=== PATIENT | male | born 1990 | race Two or more races ===

== ENCOUNTER 2019-06-10 12:35 | Emergency (ER) | payer OTHER ==
--- NOTE | 2019-06-10 13:28 | ER Document Report ---
ED Medical Screen (RME) - General Chief Complaint: Hand Injury Stated Complaint: HAND PAIN Time Seen by Provider: 06/10/19 13:25 - HPI Notes: 06/10/19 13:27 Patient is a 29-year-old male with no significant past medical history presents complaining of right dorsal hand pain status post injury 2 weeks ago. Patient states that he fell on that hand when he tripped. He has been having pain and swelling since then. No fever. I have treated and performed a rapid initial assessment of this patient. A comprehensive ED assessment and evaluation of the patient, analysis of test results and completion of medical decision making process will be conducted by additional ED providers. PHYSICAL EXAMINATION: GENERAL: Well-appearing, well-nourished and in no acute distress. Rt hand: + swelling tenderness dorsal hand near 3rd metacarpal. N/V intact distal. Past Medical History - Social History Chew tobacco use (# tins/day): No Frequency of alcohol use: None Drug Abuse: None Physical Exam - Vital signs Vitals: Temp Pulse Resp BP Pulse Ox 97.9 F 117 H 18 127/78 H 97 06/10/19 12:39 06/10/19 12:39 06/10/19 12:39 06/10/19 12:39 06/10/19 12:39 Course - Vital Signs Vital signs: Temp Pulse Resp BP Pulse Ox 97.9 F 117 H 18 127/78 H 97 06/10/19 12:39 06/10/19 12:39 06/10/19 12:39 06/10/19 12:39 06/10/19 12:39
--- NOTE | 2019-06-10 14:02 | RADIOLOGY REPORT (SQ) ---
EXAM DESCRIPTION: HAND RIGHT 3 VIEWS COMPLETED DATE/TIME: 06/10/2019 1:41 pm REASON FOR STUDY: pain/swelling s/p injury dorsal hand x2wks COMPARISON: None. EXAM PARAMETERS: NUMBER OF VIEWS: Three views. TECHNIQUE: AP, lateral and oblique radiographic images acquired of the right hand. LIMITATIONS: None. FINDINGS: MINERALIZATION: Normal. BONES: There is a fracture of the 3rd metacarpal with mild dorsal angulation. JOINTS: No effusions. SOFT TISSUES: No soft tissue swelling. No foreign body. OTHER: No other significant finding. IMPRESSION: 3rd metacarpal fracture. TECHNICAL DOCUMENTATION: JOB ID: [id number] [employer]- All Rights Reserved Reading location - IP/workstation name: [email or web address]
[2019-06-10 15:20] VITALS: BP 116/74
--- NOTE | 2019-06-10 18:34 | ER Document Report ---
Entered by MEREDITH PARKER SCRIBE 06/10/19 [id number] Acting as scribe for:CAROLYNE TERRAZAS MD ED Hand/Wrist Injury - General Chief Complaint: Hand Injury Stated Complaint: HAND PAIN Time Seen by Provider: 06/10/19 13:25 Primary Care Provider: TITA HATFIELD JR, [ACTIVE PROVISIONAL STAFF] - Follow up in 3-5 days (Call the office today or Thursday to schedule an appointment.) Information source: Patient Notes: 29-year-old male who presents to the emergency department today with complaints of right hand pain since a fall that occurred on May 27. Patient states he was walking with a bag in his hand, lost his balance and fell on a balled up fist because he "did not want to drop the bag". Patient has not gotten medical care since falling. Patient is wearing a brace on his right wrist. 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 - Related Data Allergies/Adverse Reactions: No Known Allergies Allergy (Unverified 06/10/19 13:29) Past Medical History - General Information source: Patient - Social History Smoking Status: Never Smoker Cigarette use (# per day): No Chew tobacco use (# tins/day): No Smoking Education Provided: No Frequency of alcohol use: None Drug Abuse: None Lives with: Family Family History: Reviewed & Not Pertinent Patient has suicidal ideation: No Patient has homicidal ideation: No Review of Systems - Review of Systems Constitutional: No symptoms reported EENT: No symptoms reported Cardiovascular: No symptoms reported Respiratory: No symptoms reported Gastrointestinal: No symptoms reported Genitourinary: No symptoms reported Male Genitourinary: No symptoms reported Musculoskeletal: See HPI, Joint pain - right hand Skin: No symptoms reported Hematologic/Lymphatic: No symptoms reported Neurological/Psychological: No symptoms reported -: Yes All other systems reviewed and negative Physical Exam - Vital signs Vitals: Temp Pulse Resp BP Pulse Ox 97.9 F 117 H 18 127/78 H 97 06/10/19 12:39 06/10/19 12:39 06/10/19 12:39 06/10/19 12:39 06/10/19 12:39 - Notes Notes: Physical Exam: General: Alert, appears well. HEENT: Normocephalic. Atraumatic. PERRLA. Extraocular movements intact. Oropharynx clear. Neck: Supple. Respiratory: No respiratory distress. Abdominal: Normal Inspection. No distension. Extremities: Right hand is swollen and tender dorsally. Neurological: Normal cognition. AAOx4. Normal speech. Psychological: Normal affect. Normal Mood. Skin: Warm. Dry. Normal color. Course - Vital Signs Vital signs: Temp Pulse Resp BP Pulse Ox 97.5 F 64 18 116/74 100 06/10/19 15:17 06/10/19 15:17 06/10/19 12:39 06/10/19 15:17 06/10/19 15:17 - Diagnostic Test Radiology reviewed: Image reviewed, Reports reviewed - Dorsally angulated midshaft fracture right third metacarpal Discharge - Discharge Clinical Impression: Fracture of third metacarpal bone of right hand Qualifiers: Encounter type: initial encounter Fracture type: closed Metacarpal location: shaft Fracture alignment: displaced Qualified Code(s): S62.322A - Displaced fracture of shaft of third metacarpal bone, right hand, initial encounter for closed fracture Condition: Stable Disposition: HOME, SELF-CARE Additional Instructions: Continue to use the splint you have at this time. Elevate your hand is much as possible and try to limit using the hand. Call Dr. Hatfield at [facility] for an appointment next week--call the office today or Thursday to schedule an appointment for next week. Referrals: TITA HATFIELD JR, [ACTIVE PROVISIONAL STAFF] - Follow up in 3-5 days (Call the office today or Thursday to schedule an appointment.) Scribe Attestation: 06/10/19 14:52 I personally performed the services described in the documentation, reviewed and edited the documentation which was dictated to the scribe in my presence, and it accurately records my words and actions. I personally performed the services described in the documentation, reviewed and edited the documentation which was dictated to the scribe in my presence, and it accurately records my words and actions.
== END 2019-06-10 15:19 | disposition home or self-care (01) ==
LOC: ER 12:35
DX: S62.322A Displaced fracture of shaft of third metacarpal bone, right hand, initial encounter for closed fracture (principal); W19.XXXA Unspecified fall, initial encounter
CPT/HCPCS: 99283